=== PATIENT | female | born 1960 | race African-American/Black ===

== ENCOUNTER 2017-01-28 14:12 | Emergency (ER) | payer SELFPAY ==
[~2017-01-28] VITALS: Ht 177.8 cm; Wt 86.2 kg
[~2017-01-28 14:12] MED LIST: ALBUTEROL SULF8.5 GM INH; LEVAQUIN500 MG ORAL
[2017-01-28] MEDS ORDERED: ROBAXIN-750750 MG PO (14:56)
[2017-01-28] MEDS ORDERED: IBUPROFEN600 MG ORAL (14:56)
[2017-01-28 15:10] VITALS: BP 116/77
--- NOTE | 2017-01-28 22:21 | Emergency Room Report ---
History of Present Illness General Chief Complaint: Upper Extremity Injury Source: Patient Present Illness HPI The patient is a 56 -year-old female presenting with left shoulder pain which began this morning. The patient states that she awoke with this pain for no known reason. Patient states that symptoms first began as numbness which then progressed to a dull ache with tingling sensation.Pain is described as an 8/10 dull ache it is worse with shoulder movement. The pain does not radiate. Patient denies any recent trauma or previous injury to this area. the patient denies any other sx including N, V, F, chills, diaphoresis, CP, SOB Allergies: Coded Allergies: No Known Allergies (Unverified , 01/31/16) Patient History Past Medical History: see triage record Pertinent Family History: none Last Menstrual Period: na Reviewed Nursing Documentation: PMH: Agreed, PSxH: Agreed Nursing Documentation-PMH Past Medical History: No History, Except For Review of Systems All Other Systems: negative except mentioned in HPI Physical Exam Vital Signs Date Time Temp Pulse Resp B/P Pulse Ox O2 Delivery O2 Flow Rate FiO2 01/28/17 14:30 98.4 75 20 130/79 100 Room Air Sp02 EP Interpretation: reviewed, normal General Appearance: no apparent distress, alert, GCS 15, non-toxic Head: normocephalic, atraumatic Eyes: bilateral eye PERRL, bilateral eye normal inspection ENT: hearing grossly normal, normal pharynx, no angioedema, normal voice Neck: full range of motion, supple/symm/no masses Respiratory: chest non-tender, lungs clear, normal breath sounds, speaking full sentences Cardiovascular #1: regular rate, rhythm, no edema Musculoskeletal: back normal, gait/station normal, normal range of motion, non- tender, tender - L trapezius Neurologic: alert, oriented x3, responsive, motor strength/tone normal, sensory intact, speech normal Psychiatric: judgement/insight normal, memory normal, mood/affect normal, no suicidal/homicidal ideation Skin: normal color, no rash, warm/dry, well hydrated Lymphatic: no adenopathy Medical Decision Making PA Attestation Dr. Calzada is my supervising physician. Patient management was discussed with my supervising physician Diagnostic Impression: Primary Impression: Left shoulder strain ER Course The patient is a 56-year-old female presenting with left shoulder pain Ddx considered include but not limited to sprain/strain, fracture, contusion Physical exam: Vitals are within normal limits. No apparent distress Left shoulder: No obvious deformity. Sensation intact to light-touch. There is tenderness to palpation over the left trapezius. Full active range of motion of the shoulder. 5/5 environmental protection specialist strength and shoulder strength. The patient is given a prescription for Motrin and Robaxin and will be discharged home. ER precautions given EKG Diagnostic Results Rate: normal - 76 Rhythm: NSR ST Segments: no acute changes ASA given to the pt in ED: No PA Scribe Text EKG was reviewed and read with my supervising physician. No acute ST segment changes are seen. Normal rate and rhythm. No acute changes. Last Vital Signs Date Time Temp Pulse Resp B/P Pulse Ox O2 Delivery O2 Flow Rate FiO2 01/28/17 15:10 76 18 116/77 100 Room Air 01/28/17 15:10 98.7 Status: improved Disposition: HOME, SELF-CARE Condition: Improved Scripts Methocarbamol* (ROBAXIN-750*) 750 Mg Tablet 750 MG PO TID, #15 TAB 0 Refills Prov: ROSIO LOTT.AIsaac 01/28/17 Ibuprofen* (MOTRIN*) 600 Mg Tablet 600 MG ORAL Q8H Y for For Pain, #30 TAB 0 Refills Prov: ROSIO LOTT P.A. 01/28/17 Referrals: NOT CHOSEN [facility]/,REFERRING (PCP) Patient Instructions: Muscle Strain Additional Instructions: I discussed my findings with the patient. All questions and concerns have been answered. Treatment and medication compliance have been addressed. I advised the patient that they need to follow up with PMD in 3-5 days. Return to ED if pain remains or worsens, numbness or tingling occurs, new rash is noticed, fever is noticed, or if needed for any reason. Patient verbalized understanding of discharge instructions. ROSIO LOTT Jan 28, 2017 22:20
== END 2017-01-28 15:10 | disposition home or self-care (01) ==
LOC: EMR 14:43
DX: S46.912A Strain of unspecified muscle, fascia and tendon at shoulder and upper arm level, left arm, initial encounter (principal); X58.XXXA Exposure to other specified factors, initial encounter; Y93.9 Activity, unspecified; Y92.9 Unspecified place or not applicable
CPT/HCPCS: 99284

== ENCOUNTER 2018-11-26 19:10 | Emergency (ER) | payer SELFPAY ==
[~2018-11-26] VITALS: Ht 177.8 cm; Wt 88.0 kg
[~2018-11-26 19:10] MED LIST changes: +IBUPROFEN600 MG ORAL; +ROBAXIN-750750 MG PO
[2018-11-26] MEDS ORDERED: CIPROFLOXACIN750 MG ORAL (19:20)
[2018-11-26 19:27] VITALS: BP 152/88
[2018-11-26] MEDS ORDERED: Meclizine 25mg tab ORAL PRN (19:45)
[2018-11-26 21:07] LABS: APPEARANCE,URINE CLEAR; BILIRUBIN, URINE NEGATIVE (NEGATIVE); COLOR,URINE PALE YELLOW; EOSINOPHILS % (AUTO) 3.2 % (0.0-3.0); GLUCOSE, URINE (UA) NEGATIVE (NEGATIVE); HEMATOCRIT 41.3 % (37.0-47.0); HEMOGLOBIN 13.3 G/DL (12.0-16.0); KETONES,URINE NEGATIVE (NEGATIVE); LEUKOCYTE ESTERASE ,URINE NEGATIVE (NEGATIVE); LYMPHOCYTES % (AUTO) 50.4 % (20.0-45.0); MEAN CORPUSCULAR VOLUME 93 FL (80-99); MONOCYTES % (AUTO) 6.7 % (1.0-10.0); NEUTROPHILS % (AUTO) 37.7 % (45.0-75.0); NITRITE,URINE NEGATIVE (NEGATIVE); PH,URINE 5 (4.5-8.0); PLATELET COUNT 392 K/UL (150-450); PROTEIN,URINE NEGATIVE (NEGATIVE); RED BLOOD COUNT 4.43 M/UL (4.20-5.40); UROBILINOGEN,URINE NORMAL MG/DL (0.0-1.0); WHITE BLOOD COUNT 8.1 K/UL (4.8-10.8)
[2018-11-26 21:19] LABS: ANION GAP 7 mmol/L (5-15); BLOOD UREA NITROGEN 8 mg/dL (7-18); CALCIUM 9.4 MG/DL (8.5-10.1); CARBON DIOXIDE 29 MMOL/L (21-32); CHLORIDE 103 MMOL/L (98-107); CREATININE 0.8 MG/DL (0.55-1.30); SODIUM 139 MMOL/L (136-145)
[2018-11-26 21:30] LABS: ALANINE AMINOTRANSFERASE 22 U/L (12-78); ALBUMIN 4.1 G/DL (3.4-5.0); ALBUMIN/GLOBULIN RATIO 0.9 (1.0-2.7); ALKALINE PHOSPHATASE 81 U/L (46-116); ASPARTATE AMINO TRANSFERASE 18 U/L (15-37); BILIRUBIN,TOTAL 0.3 MG/DL (0.2-1.0); CREATINE KINASE 72 U/L (26-308)
--- NOTE | 2018-11-26 21:44 | Emergency Room Report ---
History of Present Illness General Chief Complaint: Dizziness Source: Patient Present Illness HPI Patient presents with dizziness. This began Saturday before she started taking Cipro for an UTI. She had foul smelling urine which cleared. The dizziness is positional. More with rotating her head to the Left. Some improvement with laying down. No tinnitus or hyperacusis. Never has had before. Denies headache. Minimal nausea with the dizziness. No weakness. + anxious. No change in vision. No medications taken aside from Cipro for UTI. She had bronchitis in October which has improved. No sore throat or cough at this time. Denies chest pain or palpitations. Concerned over possible diabetes. Has not seen her MD for several months. Post hysterectomy and not with postmenopausal symptoms. No dysuria or bleeding. Moving bowels without difficulty. Family history of stroke in cousin at early age (46). He had gone off all medications and . 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 Now: No Reviewed Nursing Documentation: PMH: Agreed; PSxH: Agreed Nursing Documentation-PMH Past Medical History: No Stated History Review of Systems All Other Systems: negative except mentioned in HPI Physical Exam Vital Signs Date Time Temp Pulse Resp B/P (MAP) Pulse Ox O2 Delivery O2 Flow Rate FiO2 11/26/18 19:14 97.9 79 15 151/87 99 Room Air Sp02 EP Interpretation: reviewed, normal General Appearance: well appearing, no apparent distress, GCS 15 Head: normocephalic Eyes: bilateral eye normal inspection, bilateral eye PERRL, bilateral eye EOMI ENT: normal pharynx, TMs + canals normal, moist mucus membranes Neck: supple Respiratory: lungs clear, normal breath sounds Cardiovascular #1: regular rate, rhythm Cardiovascular #2: 2+ radial (R) Gastrointestinal: normal inspection, normal bowel sounds, non tender, no mass, non-distended Musculoskeletal: back normal, gait/station normal, normal range of motion Neurologic: alert, oriented x3, aircraft 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 DDx: vertigo, labyrinthitis, cerebellar ischemia amongst others. As family history of stroke at early age, CT indicated as well as labs. Treatment with meclizine. EKG normal. CT normal. Labs normal with clear UA. Improvement with treatment. Discussed need for outpatient follow up and results. Patient stable for outpatient observation and treatment. Laboratory Tests Test 11/26/18 20:14 White Blood Count 8.1 K/UL (4.8-10.8) Red Blood Count 4.43 M/UL (4.20-5.40) Hemoglobin 13.3 G/DL (12.0-16.0) Hematocrit 41.3 % (37.0-47.0) Mean Corpuscular Volume 93 FL (80-99) Mean Corpuscular Hemoglobin 29.9 PG (27.0-31.0) Mean Corpuscular Hemoglobin Concent 32.1 G/DL (32.0-36.0) Red Cell Distribution Width 12.0 % (11.6-14.8) Platelet Count 392 K/UL (150-450) Mean Platelet Volume 5.4 FL (6.5-10.1) L Neutrophils (%) (Auto) 37.7 % (45.0-75.0) L Lymphocytes (%) (Auto) 50.4 % (20.0-45.0) H Monocytes (%) (Auto) 6.7 % (1.0-10.0) Eosinophils (%) (Auto) 3.2 % (0.0-3.0) H Basophils (%) (Auto) 2.0 % (0.0-2.0) Erythrocyte Sedimentation Rate 21 MM/HR (0-30) Prothrombin Time 10.9 SEC (9.30-11.50) Prothrombin Time INR 1.0 (0.9-1.1) PTT 31 SEC (23-33) Urine Color Pale yellow Urine Appearance Clear Urine pH 5 (4.5-8.0) Urine Specific [place] 1.010 (1.005-1.035) Urine Protein Negative (NEGATIVE) Urine Glucose (UA) Negative (NEGATIVE) Urine Ketones Negative (NEGATIVE) Urine Blood Negative (NEGATIVE) Urine Nitrite Negative (NEGATIVE) Urine Bilirubin Negative (NEGATIVE) Urine Urobilinogen Normal MG/DL (0.0-1.0) Urine Leukocyte Esterase Negative (NEGATIVE) Sodium Level 139 MMOL/L (136-145) Potassium Level 4.0 MMOL/L (3.5-5.1) Chloride Level 103 MMOL/L (98-107) Carbon Dioxide Level 29 MMOL/L (21-32) Anion Gap 7 mmol/L (5-15) Blood Urea Nitrogen 8 mg/dL (7-18) Creatinine 0.8 MG/DL (0.55-1.30) Estimate Glomerular Filtration Rate > 60 mL/min (>60) Glucose Level 93 MG/DL (74-106) Calcium Level 9.4 MG/DL (8.5-10.1) Total Bilirubin 0.3 MG/DL (0.2-1.0) Aspartate Amino Transferase (AST) 18 U/L (15-37) Alanine Aminotransferase (ALT) 22 U/L (12-78) Alkaline Phosphatase 81 U/L (46-116) Total Creatine Kinase 72 U/L (26-308) Troponin I 0.000 ng/mL (0.000-0.056) Pro-B-Type Natriuretic Peptide 18 pg/mL (0-125) Total Protein 8.9 G/DL (6.4-8.2) H Albumin 4.1 G/DL (3.4-5.0) Globulin 4.8 g/dL Albumin/Globulin Ratio 0.9 (1.0-2.7) L EKG Diagnostic Results Rate: normal Rhythm: NSR ST Segments: no acute changes Rhythm Strip Diag. Results EP Interpretation: yes Rhythm: NSR, no PVC's, no ectopy CT/MRI/US Diagnostic Results CT/MRI/US Diagnostic Results : Imaging Test Ordered: head Impression no mass, bleed Last Vital Signs Date Time Temp Pulse Resp B/P (MAP) Pulse Ox O2 Delivery O2 Flow Rate FiO2 11/26/18 19:14 97.9 79 15 151/87 99 Room Air Status: improved Disposition: HOME, SELF-CARE Condition: Improved Scripts Meclizine Hcl* (MECLIZINE*) 12.5 Mg Tablet 12.5 MG ORAL THREE TIMES A DAY, #10 TAB Prov: Kunal Oliva MD 11/26/18 Referrals: NOT CHOSEN [facility]/,REFERRING (PCP) Kunal Oliva MD Nov 26, 2018 21:44
[2018-11-26] MEDS ORDERED: MECLIZINE HCL12.5 MG ORAL (21:54)
[2018-11-26 22:10] VITALS: BP 152/88
--- NOTE | 2018-11-27 13:45 | Diagnostic Imaging Report ---
Indication: Headache Technique: Contiguous 5 mm thick transaxial imaging of the head obtained in a Siem[employer] Sensation [address] scanner. Soft tissue and bone windows generated. Automatic Exposure Control was utilized. Total Dose length Product (DLP): 1242.[address] Dose Index Volume (CTDIvol): 70.38 mGy Comparison: none Findings: The size and configuration of the cortical sulci, basal cisterns, and ventricles are within normal limits for age. There is no mass effect, midline shift, or edema identified. There is no evidence of acute hemorrhage or abnormal intra-axial or extra-axial fluid collections. The bones and soft tissues are unremarkable. Impression: No mass effect, edema or acute bleed. [facility] has communicated the preliminary results to the Emergency Department. Their findings are largely concordant with this report. The CT scanner at [facility] is accredited by the [employer] and the scans are performed using dose optimization techniques as appropriate to a performed exam including Automatic Exposure control.
== END 2018-11-26 22:10 | disposition home or self-care (01) ==
LOC: EMR 19:31
DX: R42 Dizziness and giddiness (principal); N39.0 Urinary tract infection, site not specified
CPT/HCPCS: 36415; 70450; 80053; 81003; 82550; 83880; 84484; 85025; 85610; 85651; 85730; 93005; 99284